=== PATIENT | male | born 1975 | race Caucasian/White ===

== ENCOUNTER 2019-09-11 07:59 | Emergency (ER) | payer SELFPAY ==
[~2019-09-11] VITALS: Ht 170.2 cm; Wt 97.0 kg
[2019-09-11] MEDS ORDERED: MORPHINE SULFATE 4 MG/ML CPJ (NOT FOR IM USE) IV STA ×2 (08:33→09:59)
[2019-09-11] MEDS ORDERED: SODIUM CHLORIDE 0.9% 1,000 ML IV ONE (08:33)
[2019-09-11] MEDS ORDERED: ONDANSETRON HCL 4MG/2ML INJ IV STA ×2 (08:33→09:59)
[2019-09-11 08:55] LABS: BASOPHILS % 1.2 % (0.0-2.0); EOSINOPHILS % 0.2 % (0.0-5.0); HEMATOCRIT. 47.7 % (42.0-52.0); HEMOGLOBIN. 16.7 g/dL (14.0-18.0); LYMPHOCYTES % 15.5 % (20.0-50.0); MEAN CORPUSCULAR HEMOGLOBIN 28.9 pg (28.0-32.0); MEAN CORPUSCULAR VOLUME 82.4 fL (80.0-94.0); MONOCYTES % 3.8 % (2.0-8.0); NEUTROPHILS % 79.3 % (40.0-76.0); PLATELET 266 x1000/uL (130-400); RED BLOOD CELL COUNT 5.79 mill/uL (4.7-6.1); RED CELL DISTRIBUTION WIDTH 14.7 % (11.6-14.6)
[2019-09-11 09:01] LABS: CHLORIDE 106 mEq/L (98-107)
[2019-09-11] MEDS ORDERED: IOHEXOL-350 100 ML BOTTLE ONE (10:46)
[2019-09-11 10:50] LABS: CLARITY URINE CLEAR (CLEAR); COLOR URINE YELLOW (YELLOW); KETONES URINE TRACE (NEGATIVE); LEUKOCYTE ESTERASE URINE NEGATIVE (NEGATIVE); NITRITE URINE NEGATIVE (NEGATIVE); OCCULT BLOOD URINE 3+ (NEGATIVE); PH URINE 8.5 (4.5-8.0); PROTEIN URINE 1+ (NEGATIVE); SPECIFIC GRAVITY URINE 1.021 (1.005-1.030); UROBILINOGEN URINE 0.2 E.U./dL (0.2-1.0)
[2019-09-11 16:00] VITALS: BP 136/80
== END 2019-09-11 17:59 | disposition home or self-care (01) ==
LOC: ER 08:08
DX: N20.0 Calculus of kidney (principal); R07.9 Chest pain, unspecified; R10.12 Left upper quadrant pain; R11.2 Nausea with vomiting, unspecified
CPT/HCPCS: 36415; 71045; 71275; 74174; 80053; 81003; 83690; 83880; 84132; 84484; 85025; 93005; 96374; 96375; 96376; 99285; J2270; J2405; J7030; Q9967

== ENCOUNTER 2025-01-26 07:28 | Emergency (ER) | payer MEDICAID ==
[~2025-01-26] VITALS: Ht 170.2 cm; Wt 105.0 kg
[2025-01-26 07:34] VITALS: TEMP 36.9; O2SAT 99
[2025-01-26] MEDS: IBUPROFEN 600MG TABLET PO ONE (08:52)
[2025-01-26 09:08] VITALS: BP 161/108; PULSE 65; RESP 18; O2SAT 98
== END 2025-01-26 09:08 | disposition home or self-care (01) ==
LOC: ER 07:28
DX: M25.572 Pain in left ankle and joints of left foot (principal)
CPT/HCPCS: 73610; 73630; 29515; 99284; Z7610